=== PATIENT | male | born 1985 | race Caucasian/White ===

== ENCOUNTER 2018-01-15 10:30 | Emergency (ER) | payer OTHER ==
--- NOTE | 2018-01-15 14:23 | EDM.PDOC ---
Scribed by Gilda Ford 01/15/18 1400 for Alphonso Matta MD ED HPI GENERAL MEDICAL PROBLEM - General Chief Complaint: Genitourinary Problem Stated Complaint: SWOLLEN TESTICAL Time Seen by Provider: 01/15/18 10:40 Source of Information: Reports: Patient, RN, RN Notes Reviewed History Limitations: Reports: No Limitations - History of Present Illness INITIAL COMMENTS - FREE TEXT/NARRATIVE: C/O onset of left flank pain 4-5 days ago with pain radiating to LLQ/groin on and off. Yesterday his left testicle became painful and swollen. Today the left scrotum was very painful, more swollen and felt hot. He denies dysuria, penile discharge, or hematuria. No Hx of kidney stones, and no STD risk per pt. Onset Date: 01/14/18 Duration: Constant, Getting Worse Location: Reports: Other (scrotum/testicle) Quality: Reports: Ache Severity: Severe Improves with: Reports: None Worsens with: Reports: None Associated Symptoms: Reports: No Other Symptoms Left Groin Pain Score (Numeric/FACES): 6 - Related Data Allergies Allergy/AdvReac Type Severity Reaction Status Date / Time bee venom protein (honey bee) Allergy Severe Anaphylactic Verified 01/15/18 10: 42 Shock Home Meds: Home Meds EPINEPHrine [Epipen] 0.3 mg IM ASDIRECTED PRN 01/15/18 [History] Past Medical History Endocrine/Metabolic History: Reports: Obesity/BMI 30+ Social & Family History - Family History Family Medical History: Noncontributory - Living Situation & Occupation Living situation: Reports: , with Family Occupation: Employed ED ROS GENERAL - Review of Systems Review Of Systems: ROS reveals no pertinent complaints other than HPI. ED EXAM, RENAL/ - Physical Exam Exam: See Below Exam Limited By: No Limitations General Appearance: Alert, WD/WN, No Apparent Distress, Obese Throat/Mouth: Normal Voice, No Airway Compromise Head: Atraumatic, Normocephalic Neck: Normal Inspection Respiratory/Chest: No Respiratory Distress, Lungs Clear, Normal Breath Sounds, No Accessory Muscle Use, Chest Non-Tender Cardiovascular: Regular Rate, Rhythm, Tachycardia GI/Abdominal: Normal Bowel Sounds, Soft, No Distention, No Mass, Pelvis Stable, Tender (LLQ, suprapubic). No: Guarding, Rigid, Rebound (Male) Exam: Hernia (small non-tender), Scrotal Swelling, Scrotum Tenderness (L), Testicular Mass (tender, soft), Testicular Tenderness (L). No: Inguinal Lymphadenopathy, Rash, Urethral Discharge Rectal (Males) Exam: Deferred Back Exam: Normal Inspection, Full Range of Motion. No: CVA Tenderness (L), CVA Tenderness (R) Extremities: Normal Inspection Neurological: Alert, Oriented, No Motor/Sensory Deficits Psychiatric: Normal Mood Skin Exam: Erythema (mild, left scrotum), Increased Warmth (left scrotum) Course - Vital Signs Last Recorded V/S: Last Vital Signs Temp 36.8 C 01/15/18 14:06 Pulse 107 H 01/15/18 14:06 Resp 17 01/15/18 14:06 BP 136/91 H 01/15/18 14:06 Pulse Ox 97 01/15/18 14:06 - Orders/Labs/Meds Orders: Active Orders 24 hr Category Date Time Status UA W/MICROSCOPIC [URIN] Stat Lab 01/15/18 11:00 Ordered Labs: Laboratory Tests 01/15/18 01/15/18 01/15/18 Range/Units 11:00 11:44 11:44 WBC 16.8 H (5.0-10.0) 10^3/uL RBC 5.08 (4.6-6.2) 10^6/uL Hgb 15.7 (14.0-18.0) g/dL Hct 45.9 (40.0-54.0) % MCV 90.4 (80-100) fL MCH 30.9 (27.0-34.0) pg MCHC 34.2 (33.0-35.0) g/dL Plt Count 297 (150-450) 10^3/uL Neut % (Auto) 75.3 H (42.2-75.2) % Lymph % (Auto) 14.2 L (20.5-50.1) % Dickinson % (Auto) 9.2 H (2-8) % Eos % (Auto) 0.6 L (1.0-3.0) % Baso % (Auto) 0.7 (0.0-1.0) % Add Manual Diff Yes Neutrophils % (Manual) 68 (42-75) % Band Neutrophils % 5 % Lymphocytes % (Manual) 17 L (20-50) % Monocytes % (Manual) 10 H (2-8) % C-Reactive Protein 4.5 H (0.0-1.3) mg/dL Urine Color Straw (YELLOW) Urine Appearance Slightly cloudy (CLEAR) Urine pH 6.0 (5.0-9.0) Ur Specific [place] 1.020 (1.005-1.030) Urine Protein Trace H (NEGATIVE) Urine Glucose (UA) Negative (NEGATIVE) Urine Ketones Negative (NEGATIVE) Urine Occult Blood Negative (NEGATIVE) Urine Nitrite Negative (NEGATIVE) Urine Bilirubin Small H (NEGATIVE) Urine Urobilinogen 0.2 (0.2-1.0) mg/dL Ur Leukocyte Esterase Negative (NEGATIVE) Urine RBC Not seen /HPF Urine WBC 0-5 (0-5/HPF) /HPF Ur Epithelial Cells Rare /HPF Amorphous Sediment Not seen (0/HPF) /HPF Urine Bacteria Rare (0-FEW/HPF) /HPF Urine Mucus Many H /LPF - Radiology Interpretation Free Text/Narrative:: CT abdomen/pelvis: Small fat-containing left inguinal hernia without inflammation. Evidence of mild left hydrocele. Consider scrotal ultrasound for further evaluation as clinically warranted. See rad report. - Re-Assessments/Exams Free Text/Narrative Re-Assessment/Exam: 01/15/18 14:16 No US and no urology available in , therefore pt transferred to [facility], with Dr. Sainz accepting. Pt refuses ambulance transfer and chooses to go by POV. He agrees to go directly to [facility] and will remain NPO. Departure - Departure Time of Disposition: 14:17 Disposition: DC/Tfer to Acute Hospital 02 Condition: Serious Clinical Impression: Testicular pain, left, Scrotal infection Hydrocele Qualifiers: Hydrocele type: unspecified Qualified Code(s): N43.3 - Hydrocele, unspecified - Discharge Information Forms: ED Department Discharge, Interfacility Transfer EMTALA - My Orders Last 24 Hours: My Active Orders 01/15/18 11:00 UA W/MICROSCOPIC [URIN] Stat - Assessment/Plan Last 24 Hours: My Active Orders 01/15/18 11:00 UA W/MICROSCOPIC [URIN] Stat I have read and agree with the documentation that has been completed regarding this visit. By signing this record, I attest that the documentation was completed in my physical presence and is an accurate record of the encounter.
== END 2018-01-15 14:11 ==
LOC: DL.ED 10:30
DX: N43.3 Hydrocele, unspecified (principal); N50.812 Left testicular pain; N49.2 Inflammatory disorders of scrotum; Z91.030 Bee allergy status
CPT/HCPCS: 36415; 74176; 81001; 85025; 86140; 99285